=== PATIENT | female | born 2000 | race Caucasian/White ===

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

== ENCOUNTER 2022-08-17 20:25 | Emergency (ER) | payer OTHER ==
[2022-08-17 21:09] VITALS: PULSE 101
--- NOTE | 2022-08-17 22:38 | ED ---
Chest Pain HPI - General Source: patient, RN notes reviewed Mode of arrival: ambulatory Limitations: no limitations <Gracie Voss - Last Filed: 08/17/22 22:37> <Geena Burns - Last Filed: 08/18/22 02:40> - General Chief Complaint: Chest Pain Stated Complaint: CHEST PAIN-SOB Time Seen by Provider: 08/17/22 22:37 - History of Present Illness Initial Comments: Patient is a 22-year-old female presenting with chief complaint of chest pain that has been going for the last 3 hours. Pain is worse with deep breaths. Located in the center of the chest. (Gracie Voss) Patient is a 22 year old female who presents to the emergency department for chest pain. Patient has mild chest pain for the past 3 hours after coughing fit. The pain is sharp. There is no radiation. Patient states she felt short of breath while walking around her yard today. She denies leg pain and swelling. Reports fever, chills, sore throat, headache. Patient denies history of cardiac disease. (Geena Burns) - Related Data Previous Rx's Medication Instructions Recorded Ondansetron [Zofran ODT] 4 mg PO Q8HR PRN #15 tab 04/22/21 Ibuprofen [Motrin] 600 mg PO Q8HR PRN #30 tab 08/18/22 Allergies Allergy/AdvReac Type Severity Reaction Status Date / Time No Known Allergies Allergy Verified 08/17/22 21:09 Review of Systems ROS Other: All systems not noted in ROS Statement are negative. <Gracie Voss - Last Filed: 08/17/22 22:37> ROS Other: All systems not noted in ROS Statement are negative. <Geena Burns - Last Filed: 08/18/22 02:40> ROS Statement: Those systems with pertinent positive or pertinent negative responses have been documented in the HPI. Past Medical History Past Medical History: No Reported History History of Any Multi-Drug Resistant Organisms: None Reported Past Surgical History: No Surgical Hx Reported Past Psychological History: No Psychological Hx Reported Smoking Status: Vaper Past Alcohol Use History: None Reported Past Drug Use History: None Reported <Gracie Voss - Last Filed: 08/17/22 22:37> General Exam Limitations: no limitations <Gracie Voss - Last Filed: 08/17/22 22:37> General appearance: alert Head exam: Present: atraumatic, normocephalic, normal inspection Eye exam: Present: normal appearance, PERRL, EOMI. Absent: scleral icterus, conjunctival injection, periorbital swelling ENT exam: Present: normal oropharynx Neck exam: Present: normal inspection. Absent: tenderness, meningismus, lymphadenopathy Respiratory exam: Present: normal lung sounds bilaterally, chest wall tenderness. Absent: respiratory distress, wheezes, rales, rhonchi, stridor Cardiovascular Exam: Present: regular rate, normal rhythm, normal heart sounds. Absent: systolic murmur, diastolic murmur, rubs, gallop, clicks GI/Abdominal exam: Present: soft, normal bowel sounds. Absent: distended, tenderness, guarding, rebound, rigid Neurological exam: Present: alert, oriented X3, CN II-XII intact Psychiatric exam: Present: normal affect, normal mood Skin exam: Present: warm, dry, intact, normal color. Absent: rash <Geena Burns - Last Filed: 08/18/22 02:40> - General Exam Comments Initial Comments: Visual Physical Exam Vital signs reviewed General: Well-appearing, nontoxic, no acute distress. Head: Normocephalic, atraumatic Eyes: PERRLA, EOMI ENT: Airway patent Chest: Nonlabored breathing Skin: No visual rash, normal skin tone Neuro: Alert and oriented 3 Musculoskeletal: No gross abnormalities (Gracie Voss) Course Vital Signs 08/17/22 08/17/22 08/18/22 21:06 23:00 00:29 Temperature 98.1 F 100.4 F H 98.9 F Pulse Rate 101 H Respiratory 20 16 Rate Blood Pressure 141/81 97/54 O2 Sat by Pulse 100 96 Oximetry Chest Pain MDM <Geena Burns - Last Filed: 08/18/22 02:40> - MDM EKG taken at 21:30, interpreted by me Sinus rhythm, no ST segment or T-wave abnormality Ventricular rate 87, MN interval 153, QRS duration 83, QTC 378 Was pt. sent in by a medical professional or institution (, PA, [employer], urgent care, hospital, or [facility]...) When possible be specific @ -No Did you speak to anyone other than the patient for history (EMS, parent, family, police, friend...)? What history was obtained from this source @ -No Did you review nursing and triage notes (agree or disagree)? Why? @ -I reviewed and agree with nursing and triage notes Were old charts reviewed (outside hosp., previous admission, EMS record, old EKG, old radiological studies, urgent care reports/EKG's, [facility] records)? Report findings @ -No old charts were reviewed Differential Diagnosis (chest pain, altered mental status, abdominal pain women, abdominal pain men, vaginal bleeding, weakness, fever, dyspnea, syncope, headache, dizziness, GI bleed, back pain, seizure, CVA, palpatations, mental health)? @ -Differential Chest Pain: Stable Angina, Unstable Angina, STEMI, NSTEMI Aortic Dissection, Pneumothorax, Musculoskeletal, Esophageal Spasm GERD, Cholecystitis, Pancreatitis, Zoster, this is not meant to be an all-inclusive list. EKG interpreted by me (3pts min.). @ -As above X-rays interpreted by me (1pt min.). @ -Yes, Chest x-ray negative for acute process CT interpreted by me (1pt min.). @ -None done U/S interpreted by me (1pt. min.). @ -None done What testing was considered but not performed or refused? (CT, X-rays, U/S, labs)? Why? @ -None What meds were considered but not given or refused? Why? @ -None Did you discuss the management of the patient with other professionals (professionals i.e. , PA, [employer], lab, RT, psych nurse, drug abuse social worker, finance business partner, teacher, hotel security officer, case management rn)? Give summary @ -No Was smoking cessation discussed for >3mins.? @ -No Was critical care preformed (if so, how long)? @ -No Were there social determinants of health that impacted care today? How? (Homelessness, low income, unemployed, alcoholism, drug addiction, transportation, low edu. Level, literacy, decrease access to med. care, half-way, rehab)? @ -[No] Was there de-escalation of care discussed even if they declined (Discuss DNR or withdrawal of care, Hospice)? DNR status @ -[No] What co-morbidities impacted this encounter? (DM, HTN, Smoking, COPD, CAD, Cancer, CVA, ARF, Chemo, Hep., AIDS, mental health diagnosis, sleep apnea, morbid obesity)? @ -[None] Was patient admitted / discharged? Hospital course, mention meds given and route, prescriptions, significant lab abnormalities, going to OR and other pertinent info. @ -Patient with.chest pain and upper respiratory symptoms. Patient is febrile at 100.4F. She is resting comfortably no evidence of respiratory distress. Hemodynamically stable. Patient has mild left chest wall tenderness. I suspect muscle strain. EKG shows sinus rhythm with no evidence of acute ischemia. X- ray negative for pneumonia and acute process. COVID-19, RSV, influenza, strep not detected. Fever pain treatment in the emergency department with improvement. Patient will be discharged with her primary Undiagnosed new problem with uncertain prognosis? @ -[No] Drug Therapy requiring intensive monitoring for toxicity (Heparin, Nitro, Insulin, Cardizem)? @ -[No] Were any procedures done? @ -[No] Diagnosis/symptom? @ -chest wall strain Acute, or Chronic, or Acute on Chronic? @ -acute Uncomplicated (without systemic symptoms) or Complicated (systemic symptoms)? @ -uncomplicated Side effects of treatment? @ -[No] Exacerbation, Progression, or Severe Exacerbation? @ -[No] Poses a threat to life or bodily function? How? (Chest pain, [place], [place], pneumonia, PE, COPD, DKA, ARF, appy, cholecystitis, CVA, Diverticulitis, Homicidal, Suicidal, threat to staff... and all critical care pts) @ -[No] Dr. Martínez is my attending (Geena Burns) Disposition <Gracie Voss - Last Filed: 08/17/22 22:37> Is patient prescribed a controlled substance at d/c from ED?: No <Geena Burns - Last Filed: 08/18/22 02:40> Clinical Impression: Strain of chest wall Disposition: HOME SELF-CARE Condition: Good Instructions (If sedation given, give patient instructions): Chest Pain (ED) Additional Instructions: Take Motrin as needed for pain and fever. Follow-up with primary care provider in one to 2 days. Return to emergency department experience new, concerning, or worsening symptoms. Prescriptions: Ibuprofen [Motrin] 600 mg PO Q8HR PRN #30 tab PRN Reason: Pain Referrals: Jamey Barrientos DO [Primary Care Provider] - 1-2 days
[2022-08-17] MEDS ORDERED: KETOROLAC 15 MG/ML 1 ML VIAL IM STA (23:04)
--- NOTE | 2022-08-17 23:16 | XR ---
EXAMINATION TYPE: XR chest 2V DATE OF EXAM: 08/17/2022 10:59 PM COMPARISON: Chest radiographs from 02/17/2016 TECHNIQUE: XR chest 2V Frontal and lateral views of the chest. CLINICAL INDICATION:Female, 22 years old with history of Chest Pain; FINDINGS: Lungs/Pleura: There is no evidence of pleural effusion, focal consolidation, or pneumothorax. Pulmonary vascularity: Unremarkable. Heart/mediastinum: Cardiomediastinal silhouette is unremarkable. Musculoskeletal: No acute osseous pathology. IMPRESSION: No acute cardiopulmonary disease/process.
[2022-08-18 00:31] VITALS: BP 97/54; RESP 16; TEMP 98.9
== END 2022-08-18 00:31 | disposition home or self-care (01) ==
LOC: EC 20:25
DX: S29.012A Strain of muscle and tendon of back wall of thorax, initial encounter (principal); F17.290 Nicotine dependence, other tobacco product, uncomplicated; Z20.822 Contact with and (suspected) exposure to COVID-19; X58.XXXA Exposure to other specified factors, initial encounter
CPT/HCPCS: 93005; 87651; 87636; 71046; 99285; 96372; J1885

== ENCOUNTER 2022-09-16 10:57 | Emergency (ER) | payer OTHER ==
[2022-09-16 11:35] VITALS: BP 111/68; PULSE 62; RESP 16; TEMP 97.9
[2022-09-16] MEDS ORDERED: SODIUM CHLORIDE 0.9% 500 ML 500 ML IV STA (11:49)
[2022-09-16] MEDS ORDERED: KETOROLAC 15 MG/ML 1 ML VIAL IVP STA (11:49)
--- NOTE | 2022-09-16 11:53 | ED ---
Female Urogenital HPI - General Chief complaint: Urogenital Stated complaint: abd pain Time Seen by Provider: 09/16/22 11:37 Source: patient, RN notes reviewed, old records reviewed Mode of arrival: ambulatory Limitations: no limitations - History of Present Illness Initial comments: This is a pleasant 22-year-old female that presents to the emergency room with complaints of left flank pain radiating to her left groin with dysuria since 8:00 this morning. Denies any fevers. No nausea vomiting or diarrhea. No history of kidney stones. Denies any medical history. Denies any vaginal discharge or vaginal bleeding. No concerns for has IUD. MD Complaint: dysuria, other (left flank pain) -: hour(s) (4) Severity scale (1-10): 8 Quality: sharp Last Menstrual Period: 09/02/22 Patient : No - Related Data Previous Rx's Medication Instructions Recorded Ondansetron [Zofran ODT] 4 mg PO Q8HR PRN #15 tab 04/22/21 Ibuprofen [Motrin] 600 mg PO Q8HR PRN #30 tab 08/18/22 Allergies Allergy/AdvReac Type Severity Reaction Status Date / Time No Known Allergies Allergy Verified 08/17/22 21:09 Review of Systems ROS Statement: Those systems with pertinent positive or pertinent negative responses have been documented in the HPI. ROS Other: All systems not noted in ROS Statement are negative. Past Medical History Past Medical History: No Reported History History of Any Multi-Drug Resistant Organisms: None Reported Past Surgical History: No Surgical Hx Reported Past Psychological History: No Psychological Hx Reported Smoking Status: Vaper Past Alcohol Use History: None Reported Past Drug Use History: None Reported General Exam Limitations: no limitations General appearance: alert, in no apparent distress Head exam: Present: atraumatic Eye exam: Present: normal appearance. Absent: scleral icterus, conjunctival injection, periorbital swelling Neck exam: Absent: meningismus Respiratory exam: Present: normal lung sounds bilaterally. Absent: respiratory distress, accessory muscle use Cardiovascular Exam: Present: regular rate GI/Abdominal exam: Present: soft, tenderness (suprapubic left groin). Absent: distended Extremities exam: Present: full ROM, normal capillary refill. Absent: tender ness, pedal edema Back exam: Present: full ROM, CVA tenderness (L). Absent: tenderness, CVA tenderness (R), paraspinal tenderness, vertebral tenderness, rash noted Neurological exam: Present: alert, oriented X3 Psychiatric exam: Present: normal affect, normal mood Skin exam: Present: warm, dry, normal color. Absent: cyanosis, diaphoretic, petechiae, pallor Course Vital Signs 09/16/22 11:31 Temperature 97.9 F Pulse Rate 62 Respiratory 16 Rate Blood Pressure 111/68 O2 Sat by Pulse 100 Oximetry - Reevaluation(s) Reevaluation #1: 09/16/22 12:56 Patient states that she has mild relief after medication however pain comes in waves left flank. CT ordered. Time: 12:56 Medical Decision Making - Medical Decision Making Was pt. sent in by a medical professional or institution (, PA, [facility], urgent care, hospital, or detention...) When possible be specific @ -No Did you speak to anyone other than the patient for history (EMS, parent, family, police, friend...)? What history was obtained from this source @ -No Did you review nursing and triage notes (agree or disagree)? Why? @ -I reviewed and agree with nursing and triage notes Were old charts reviewed (outside hosp., previous admission, EMS record, old EKG, old radiological studies, urgent care reports/EKG's, detention records)? Report findings @ -No old charts were reviewed Differential Diagnosis (chest pain, altered mental status, abdominal pain women, abdominal pain men, vaginal bleeding, weakness, fever, dyspnea, syncope, headache, dizziness, GI bleed, back pain, seizure, CVA, palpatations, mental health, musculoskeletal)? @ -Renal calculi, hydronephrosis, pyelonephritis, UTI, cystitis EKG interpreted by me (3pts min.). @ -n/a X-rays interpreted by me (1pt min.). @ -None done CT interpreted by me (1pt min.). @ -Yes, CT interpreted by me shows evidence of a left renal calculi. IUD in place. U/S interpreted by me (1pt. min.). @ -None done What testing was considered but not performed or refused? (CT, X-rays, U/S, labs)? Why? @ -None What meds were considered but not given or refused? Why? @ -None Did you discuss the management of the patient with other professionals (professionals i.e. , PA, [facility] [facility] [facility], lab, RT, psych nurse, social services manager, brine mixer operator, teacher, youth corrections officer, case mgr)? Give summary @ -No Was smoking cessation discussed for >3mins.? @ -No Was critical care preformed (if so, how long)? @ -No Were there social determinants of health that impacted care today? How? (Homelessness, low income, unemployed, alcoholism, drug addiction, transportation, low edu. Level, literacy, decrease access to med. care, retirement, rehab)? @ -No Was there de-escalation of care discussed even if they declined (Discuss DNR or withdrawal of care, Hospice)? DNR status @ -No What co-morbidities impacted this encounter? (DM, HTN, Smoking, COPD, CAD, Cancer, CVA, ARF, Chemo, Hep., AIDS, mental health diagnosis, sleep apnea, morbid obesity)? @ -None Was patient admitted / discharged? Hospital course, mention meds given and route, prescriptions, significant lab abnormalities, going to OR and other pertinent info. @ -discharged This is a pleasant 22-year-old female that presents to the emergency room with complaints of left flank pain radiating to her left groin with dysuria since 8:00 this morning. Denies any fevers. No nausea vomiting or diarrhea. No history of kidney stones. Denies any medical history. Denies any vaginal discharge or vaginal bleeding. No concerns for has IUD.. On physical exam patient has left CVA tenderness. Abdomen is soft and nontender. Patient is afebrile and vital signs are stable. Urinalysis shows large blood with no evidence of infection. CBC shows a mild leukocytosis. Electrolytes are unremarkable. Radiologist interpretation mild left hydroureteral nephrosis. No obstructing calculi visualized. Correlate for a recently passed stone. Nonobstructing left renal calculus measuring [address] Patient's symptoms are likely related to a recently passed kidney stone. States that her pain has resolved at this time. She was given a referral to urology. Directed to increase her fluid intake. Return to the emergency room with any new or concerning symptoms including fever s, increased pain or persistent nausea vomiting. She is agreeable to this plan of care. Discussed with Dr. Roskopp Undiagnosed new problem with uncertain prognosis? @ -No Drug Therapy requiring intensive monitoring for toxicity (Heparin, Nitro, Insulin, Cardizem)? @ -No Were any procedures done? @ -No Diagnosis/symptom? @ -Kidney stone, hydroureteralnephrosis Acute, or Chronic, or Acute on Chronic? @ -Acute Uncomplicated (without systemic symptoms) or Complicated (systemic symptoms)? @ -Uncomplicated Side effects of treatment? @ -No Exacerbation, Progression, or Severe Exacerbation? @ -No Poses a threat to life or bodily function? How? (Chest pain, [place], [place], pneumonia, PE, COPD, DKA, ARF, appy, cholecystitis, CVA, Diverticulitis, Homicidal, Suicidal, threat to staff... and all critical care pts) @ -No - Lab Data Result diagrams: 09/16/22 11:55 09/16/22 11:55 Lab Results 09/16/22 09/16/22 09/16/22 Range/Units 11:55 11:55 11:55 WBC 12.4 H (4.0-11.0) k/uL RBC 4.56 (3.80-5.40) m/uL Hgb 13.3 (11.4-16.0) gm/dL Hct 40.5 (34.0-46.0) % MCV 89.0 (80.0-100.0) fL MCH 29.3 (25.0-35.0) pg MCHC 32.9 (31.0-37.0) g/dL RDW 13.2 (11.5-15.5) % Plt Count 264 (150-450) k/uL MPV 8.0 Neutrophils % 88 % Lymphocytes % 9 % Monocytes % 3 % Eosinophils % 0 % Basophils % 0 % Neutrophils # 10.8 H (1.3-7.7) k/uL Lymphocytes # 1.1 (1.0-4.8) k/uL Monocytes # 0.4 (0-1.0) k/uL Eosinophils # 0.0 (0-0.7) k/uL Basophils # 0.0 (0-0.2) k/uL Sodium (137-145) mmol/L Potassium (3.5-5.1) mmol/L Chloride (98-107) mmol/L Carbon Dioxide (22-30) mmol/L Anion Gap mmol/L BUN (7-17) mg/dL Creatinine (0.52-1.04) mg/dL Est GFR (CKD-EPI)AfAm (>60 ml/min/1.73 sqM) Est GFR (CKD-EPI)NonAf (>60 ml/min/1.73 sqM) Glucose (74-99) mg/dL Calcium (8.4-10.2) mg/dL Total Bilirubin (0.2-1.3) mg/dL AST (14-36) U/L ALT (4-34) U/L Alkaline Phosphatase (38-126) U/L Total Protein (6.3-8.2) g/dL Albumin (3.5-5.0) g/dL Urine Color Yellow Urine Appearance Clear (Clear) Urine pH 6.5 (5.0-8.0) Ur Specific [place] 1.020 (1.001-1.035) Urine Protein 1+ H (Negative) Urine Glucose (UA) Negative (Negative) Urine Ketones 1+ H (Negative) Urine Blood Large H (Negative) Urine Nitrite Negative (Negative) Urine Bilirubin Negative (Negative) Urine Urobilinogen <2.0 (<2.0) mg/dL Ur Leukocyte Esterase Negative (Negative) Urine RBC >182 H (0-5) /hpf Urine WBC 2 (0-5) /hpf Ur Squamous Epith Cells <1 (0-4) /hpf Urine Mucus Many H (None) /hpf Urine HCG, Qual Not Detected (Not Detectd) 09/16/22 Range/Units 11:55 WBC (4.0-11.0) k/uL RBC (3.80-5.40) m/uL Hgb (11.4-16.0) gm/dL Hct (34.0-46.0) % MCV (80.0-100.0) fL MCH (25.0-35.0) pg MCHC (31.0-37.0) g/dL RDW (11.5-15.5) % Plt Count (150-450) k/uL MPV Neutrophils % % Lymphocytes % % Monocytes % % Eosinophils % % Basophils % % Neutrophils # (1.3-7.7) k/uL Lymphocytes # (1.0-4.8) k/uL Monocytes # (0-1.0) k/uL Eosinophils # (0-0.7) k/uL Basophils # (0-0.2) k/uL Sodium 139 (137-145) mmol/L Potassium 4.0 (3.5-5.1) mmol/L Chloride 105 (98-107) mmol/L Carbon Dioxide 24 (22-30) mmol/L Anion Gap 10 mmol/L BUN 11 (7-17) mg/dL Creatinine 0.68 (0.52-1.04) mg/dL Est GFR (CKD-EPI)AfAm >90 (>60 ml/min/1.73 sqM) Est GFR (CKD-EPI)NonAf >90 (>60 ml/min/1.73 sqM) Glucose 98 (74-99) mg/dL Calcium 9.6 (8.4-10.2) mg/dL Total Bilirubin 0.4 (0.2-1.3) mg/dL AST 25 (14-36) U/L ALT 21 (4-34) U/L Alkaline Phosphatase 74 (38-126) U/L Total Protein 8.1 (6.3-8.2) g/dL Albumin 4.8 (3.5-5.0) g/dL Urine Color Urine Appearance (Clear) Urine pH (5.0-8.0) Ur Specific [place] (1.001-1.035) Urine Protein (Negative) Urine Glucose (UA) (Negative) Urine Ketones (Negative) Urine Blood (Negative) Urine Nitrite (Negative) Urine Bilirubin (Negative) Urine Urobilinogen (<2.0) mg/dL Ur Leukocyte Esterase (Negative) Urine RBC (0-5) /hpf Urine WBC (0-5) /hpf Ur Squamous Epith Cells (0-4) /hpf Urine Mucus (None) /hpf Urine HCG, Qual (Not Detectd) Disposition Clinical Impression: Renal calculus, left, Hydroureteronephrosis Disposition: HOME SELF-CARE Condition: Good Instructions (If sedation given, give patient instructions): Kidney Stones (ED) Additional Instructions: Increase your fluid intake. Follow-up with urology for your primary care doctor next week as needed. Return to the emergency room with any new or concerning symptoms including fever, persistent nausea vomiting or increased pain. Is patient prescribed a controlled substance at d/c from ED?: No Referrals: Jamey Barrientos DO [Primary Care Provider] - 1-2 days Betrus,Brendan, MD [STAFF PHYSICIAN] - 1-2 days Time of Disposition: 14:22
[2022-09-16 12:33] LABS: Basophils % (A) 0 %; Eosinophils % (A) 0 %; HCT 40.5 % (34.0-46.0); HGB 13.3 gm/dL (11.4-16.0); Lymphocytes # (A) 1.1 k/uL (1.0-4.8); Lymphocytes % (A) 9 %; MCH 29.3 pg (25.0-35.0); MCHC 32.9 g/dL (31.0-37.0); Monocytes # (A) 0.4 k/uL (0-1.0); Monocytes % (A) 3 %; Neutrophils # (A) 10.8 k/uL (1.3-7.7); Neutrophils % (A) 88 %; Platelet Count 264 k/uL (150-450); RBC 4.56 m/uL (3.80-5.40); RDW 13.2 % (11.5-15.5); WBC 12.4 k/uL (4.0-11.0)
[2022-09-16 12:47] LABS: Appearance,Urine Clear (Clear); Bilirubin,Urine Negative (Negative); Blood,Urine Large (Negative); Color,Urine Yellow; Glucose,Urine (UA) Negative (Negative); Ketones,Urine 1+ (Negative); Leukocyte Esterase,Urine Negative (Negative); Mucus,Urine Many /hpf; Nitrite,Urine Negative (Negative); PH, Urine 6.5 (5.0-8.0); Protein,Urine 1+ (Negative); RBC,Urine >182 /hpf (0-5); Squamous Epithelial Cell,Urine <1 /hpf (0-4); Urobilinogen,Urine <2.0 mg/dL (<2.0); WBC,Urine 2 /hpf (0-5)
[2022-09-16 12:53] LABS: ALT 21 U/L (4-34); AST 25 U/L (14-36); African American GFR (CKD) >90 (>60 ml/min/1.73 sqM); Albumin 4.8 g/dL (3.5-5.0); Alkaline Phosphatase 74 U/L (38-126); Anion Gap 10 mmol/L; Blood Urea Nitrogen 11 mg/dL (7-17); Calcium 9.6 mg/dL (8.4-10.2); Carbon Dioxide 24 mmol/L (22-30); Chloride 105 mmol/L (98-107); Glucose 98 mg/dL (74-99); Non-African American GFR(CKD) >90 (>60 ml/min/1.73 sqM); Sodium 139 mmol/L (137-145); Total Bilirubin 0.4 mg/dL (0.2-1.3); Total Protein 8.1 g/dL (6.3-8.2)
--- NOTE | 2022-09-16 14:04 | CT ---
EXAMINATION TYPE: CT abdomen pelvis wo con CT DLP: 427.6 mGycm, Automated exposure control for dose reduction was used. DATE OF EXAM: 09/16/2022 1:33 PM COMPARISON: None CLINICAL INDICATION:Female, 22 years old with history of r/o stone; Left flank pain x 5.5 hours, Micr ohematuria. R/o Stone TECHNIQUE: Axial CT of the abdomen and pelvis. Sagittal and coronal reformats were created on a [employer] workstation. Contrast used: None Oral contrast used: without Oral Contrast FINDINGS: LOWER CHEST: Unremarkable ABDOMEN LIVER: Unremarkable GALLBLADDER AND BILE DUCTS: Unremarkable. PANCREAS: Unremarkable. SPLEEN: Unremarkable. ADRENAL GLANDS: Unremarkable. KIDNEYS AND URETERS: Mild left hydroureteronephrosis. No right hydronephrosis.Left nonobstructing ca lculus measuring 4 mm. No right renal calculi. PELVIS BLADDER: Unremarkable REPRODUCTIVE: Intrauterine device seen within the endometrium. Tampon is in the vagina. ABDOMEN & PELVIS STOMACH AND BOWEL: No evidence of bowel obstruction. PERITONEUM/RETROPERITONEUM: No evidence of pneumoperitoneum or free fluid. VASCULATURE: No evidence of aortic aneurysm. MUSCULOSKELETAL: No acute osseous abnormalities LYMPH NODES: No gross evidence for lymphadenopathy. SOFT TISSUE/ABDOMINAL WALL: Unremarkable IMPRESSION: 1. Mild left hydroureteronephrosis. No obstructing calculus visualized. Correlate for recently passe d stone. There is a nonobstructing left renal calculus measuring 4 mm. 2. [address]UD [address].
== END 2022-09-16 14:42 | disposition home or self-care (01) ==
LOC: EC 10:57
DX: N13.2 Hydronephrosis with renal and ureteral calculous obstruction (principal); F17.290 Nicotine dependence, other tobacco product, uncomplicated
CPT/HCPCS: 36415; 80053; 85025; 81001; 81025; 74176; 99284; 96374; J1885